=== PATIENT | male | born 1965 | race Caucasian/White ===

== ENCOUNTER 2023-09-04 08:10 | Day surgery (SDC) | payer OTHER ==
[2023-09-01 15:00] VITALS: BP 141/80
[~2023-09-04] VITALS: Ht 185.4 cm; Wt 90.9 kg
[~2023-09-04 08:10] MED LIST: CLOTRIMAZOLE-BE15 GM TOP; IBLOOD GLUCOSE TEST STRIP 1 EA TEST VI PRN; LACTATED RINGER'S 1,000 ML IV SCH; LIDOCAINE HCL 1% 5 ML SDV INJ ONE; LISINOPRIL40 MG PO; MIDAZOLAM HCL 5 MG/5 ML VIAL IV PRN; NEURONTIN300 MG PO; NORCO 5-325 TA1 EACH PO; NORVASC10 MG PO; VIAGRA25 MG PO; fentaNYL citrate 100 MCG/2 ML VIAL IV PRN; propofoL 200 MG/20 ML VIAL ONE
[2023-09-04 08:34] VITALS: BP 132/68
[2023-09-04] MEDS ORDERED: LACTATED RINGER'S 1,000 ML IV ONE (09:39)
--- NOTE | 2023-09-04 10:14 | NUR ---
09/04/23 1014 Sheets,[place] 0960 PT ARRIVED TO PACU ON 10L VIA MASK WITH ORAL AIRWAY IN PLACE. RESP EVEN AND UNLABORED. PT NONAROUSABLE TO TACTILE STIMULI. 1001 PT WOKE TO TACTILE STIMULI AND ORAL AIRWAY AND MASK REMOVED. PT ROLLED TO BACK AND REQUESTING WATER. 1010 PT WAKES OFF AND ON AND ABLE TO SIT UP. PT SIPPING WATER. PT REPROTS VERY DRY EYES, EYES NOTED TO BE RED.
--- NOTE | 2023-09-04 10:38 | OR ---
[facility] [address] [place], [place] [address] Signed DATE OF OPERATION: 09/04/2023 SURGEON: Erick Thomas MD PREOPERATIVE DIAGNOSES: 1. Screening. 2. Hemorrhoids with intermittent rectal bleeding. POSTOPERATIVE DIAGNOSES: 1. Cnzorvz-wa-rxelmdho internal hemorrhoids. 2. Minimal external hemorrhoids. 3. A 3 mm polyp at base of cecum. 4. A 4 mm polyp at 17 cm in the rectum. 5. A 4 mm polyp at 15 cm in the rectum. PROCEDURE: Colonoscopy with hot biopsy. ESTIMATED BLOOD LOSS: None. INDICATIONS: Orquidea is a 58-year-old gentleman, who presents for his initial screening colonoscopy. He had been in shelter for quite some time and is now working and going to school. He told me he has intermittent rectal bleeding, which he associated with hemorrhoids. He has no family history of colon cancer or polyps that he knows of. He said only one of his brothers has undergone a colonoscopy. In the office, I gave him a pamphlet on colonoscopy. We reviewed the nature of the test. There is risk including, but not limited to gas bloating, crampy abdominal pain, bleeding, perforation requiring surgery, and missed diagnosis. We also reviewed the written instructions for the bowel prep line by line. We also gone through his medications. We also explained that given his daily use of whiskey and marijuana, that he is going to need a monitored anesthesia care with propofol infusion. He understands an adult person has to take him home afterwards. He believes that will be his brother. He had expressed understanding and wished to proceed. DESCRIPTION OF PROCEDURE: Orquidea was taken into our endoscopy suite and placed in the left lateral decubitus position. He was given monitored anesthesia care with propofol infusion per our nurse radiology special procedure tech. Digital rectal exam was performed. He has very little in the way of Electronically Signed By: ERICK THOMAS MD 09/04/23 [facility] PATIENT NAME: ORQUIDEA CHENG OPERATIVE REPORT DATE OF : 61 REPORT #: [id number] PHYSICIAN: ERICK THOMAS MD PCP: TRINIDAD JEWELL PA-C REPORT IS CONFIDENTIAL AND NOT TO BE RELEASED WITHOUT AUTHORIZATION [facility] [address] [place], [place] [address] Signed external hemorrhoids. Good perianal hygiene. There were no masses. The adult colonoscope was introduced and advanced all around into the cecum under direct visualization of camera without difficulty. His prep was quite excellent. We could easily see the appendiceal orifice and ileocecal valve. Just to the side of the appendiceal orifice, there was a tiny 3 mm polyp, which we removed with the help of hot biopsy forceps. The scope was then slowly withdrawn. We took pictures throughout for photodocumentation. He had two small polyps in the top of his rectum. They were easily removed with a hot biopsy forceps. Upon retroflexion of scope, he does have agpjphh-[id number]-ieplhvfd internal hemorrhoids. After this, the gas was suctioned out. The colonoscope removed. Orquidea tolerated procedure quite well. RECOMMENDATIONS: I will see Orquidea back in my office in 7 to 14 days to review his results. Erick Thomas MD ALB/MODL /[id number] cc: Erick Thomas MD Patient Chart SASKIA Hdez Copies: ERICK THOMAS MD ~ Electronically Signed By: ERICK THOMAS MD 09/04/23 1038 PATIENT NAME: ORQUIDEA CHENG OPERATIVE REPORT DATE OF : 61 REPORT #: [id number] PHYSICIAN: ERICK THOMAS MD PCP: TRINIDAD JEWELL PA-C REPORT IS CONFIDENTIAL AND NOT TO BE RELEASED WITHOUT AUTHORIZATION
[2023-09-04] MEDS ORDERED: ARTIFICIAL TEARS 15 ML BTL OD PRN (10:45)
[2023-09-04 11:29] VITALS: BP 118/80
--- NOTE | 2023-09-10 16:25 | PATH ---
[facility] [address] [facility] [place] [address] Signed SPECIMEN(S): A RECTAL POLYP, 15 CM SPECIMEN(S): B RECTAL POLYP, 17 CM SPECIMEN(S): C CECUM POLYP SPECIMEN SOURCE: A. RECTAL POLYP, 15 CM B. RECTAL POLYP, 17 CM C. CECUM POLYP CLINICAL HISTORY: Initial screening colonoscopy; no family history of colon cancer FINAL PATHOLOGIC DIAGNOSIS: A. Rectum, 15 cm, polypectomy: - Tubular adenoma B. Rectum, 17 cm, polypectomy: - Tubular adenoma C. Cecum, polypectomy: - Colonic mucosa with no significant pathologic changes BRP MICROSCOPIC EXAMINATION: Histologic sections of all submitted blocks are examined by light microscopy. These findings, together with the gross examination, support the pathologic diagnosis. GROSS DESCRIPTION: A. The specimen, labeled and designated "Cheng, rectal polyp, 15 cm," is received in formalin and consists of two tolbert soft tissue fragments, ranging from 0.4-0.6 cm. Entirely submitted in (A1). B. The specimen, labeled and designated "Cheng, rectal polyp, 17 cm," is received in formalin and consists of four tolbert soft tissue fragments, ranging from 0.2-0.3 cm. Entirely submitted in (B1). C. The specimen, labeled and designated "Hceng, cecum polyp," is received in formalin and consists of one tolbert soft tissue fragment, 0.4 cm. Entirely submitted in (C1). VB (under the direct supervision of a pathologist) The Gross Description was prepared using a voice recognition system. The report was reviewed for accuracy; however, sound-alike word errors, addition and/or deletions may occur. If there is any question about this report, please contact Client Services. PATIENT NAME: ORQUIDEA CHENG PATHOLOGY DATE OF : 61 REPORT #: [id number] PHYSICIAN: AZALIA PATHOLOGY PCP: TRINIDAD JEWELL PA-C REPORT IS CONFIDENTIAL AND NOT TO BE RELEASED WITHOUT AUTHORIZATION [facility] [address] [facility] [place] [address] Signed ADDITIONAL NOTES: Immunohistochemical and/or in situ hybridization studies if performed in this case included appropriate positive controls that reacted as expected. This test was developed and its performance characteristics determined by [facility]. It has not been cleared or approved by the U.S. Food and Drug Administration. The FDA has determined that such clearance or approval is not necessary. This test is used for clinical purposes. It should not be regarded as investigational or for research. [facility] is certified under the Clinical Laboratory Improvement Amendments of 1988 (CLIA) as qualified to perform high complexity clinical laboratory testing. PERFORMING LABORATORY: Technical component was performed by [facility], [address] [place] [address] (CLIA# [id number]). Professional interpretation was performed by [facility] - [facility] [address] [place] [id number] Diagnostician: Carmelo Santana MD Pathologist Electronically Signed 09/10/2023 Copies: ~ PATIENT NAME: ORQUIDEA CHENG PATHOLOGY DATE OF : 61 REPORT #: [id number] PHYSICIAN: [facility] PATHOLOGY PCP: TRINIDAD JEWELL PA-C REPORT IS CONFIDENTIAL AND NOT TO BE RELEASED WITHOUT AUTHORIZATION
== END 2023-09-04 11:09 | disposition home or self-care (01) ==
LOC: DS 08:10
PROVIDERS: ATTEND Colon & Rectal Surgery
PROC: 0DBE8ZX Excision of Large Intestine, Via Natural or Artificial Opening Endoscopic, Diagnostic (ICD-10-PCS; 2023-09-04)
PROC: 0DBP8ZX Excision of Rectum, Via Natural or Artificial Opening Endoscopic, Diagnostic (ICD-10-PCS; principal; 2023-09-04 08:40)
DX: Z12.11 Encounter for screening for malignant neoplasm of colon (principal); D12.8 Benign neoplasm of rectum; K63.5 Polyp of colon; K64.8 Other hemorrhoids; K64.4 Residual hemorrhoidal skin tags; I10 Essential (primary) hypertension; E78.5 Hyperlipidemia, unspecified; E11.40 Type 2 diabetes mellitus with diabetic neuropathy, unspecified; Z79.899 Other long term (current) drug therapy
CPT/HCPCS: 00811; 88305; J2704; J7121